=== PATIENT | female | born 1980 | race Caucasian/White ===

== ENCOUNTER 2025-01-13 15:10 | Outpatient (CLI) | payer OTHER | END 2025-01-13 15:11 | disposition home or self-care (01) | LOC: CSHMAMMO 15:10 | PROVIDERS: ATTEND Obstetrics & Gynecology | DX: Z12.31 Encounter for screening mammogram for malignant neoplasm of breast (principal); N64.89 Other specified disorders of breast | CPT/HCPCS: 77063; 77067 ==

== ENCOUNTER 2025-02-09 14:03 | Outpatient (CLI) | payer OTHER | END 2025-02-09 14:04 | disposition home or self-care (01) | LOC: CSHMAMMO 14:03 | PROVIDERS: ATTEND Obstetrics & Gynecology | DX: N64.89 Other specified disorders of breast (principal) | CPT/HCPCS: G0279 ==